=== PATIENT | male | born 1970 | race Caucasian/White ===

== ENCOUNTER → 2017-06-06 11:29 | Outpatient (CLI) | payer OTHER, SELFPAY ==
[2017-06-06 12:18] LABS: Absolute Lymphocyte Count 1.79 X10^3/ul (0.83-4.51); Absolute Neutrophil Count 3.2 X10^3/uL (2.0-7.7); Basophil# 0.03 X10^3/uL; Basophil% 0.5 % (0-1); Eosinophil# 0.12 X10^3/uL; Hematocrit 41.9 % (40-54); Hemoglobin 14.8 g/dl (13.0-16.5); Lymphocyte # 1.79 X10^3/ul (4.0); Lymphocyte % 30.5 % (19-41); Mean Corp Hgb Conc 35.3 g/gl (32-36); Mean Corpuscular Hgb 29.5 pg (27.0-32.0); Mean Corpuscular Volume 83.5 fL (80-94); Mean Platelet Vol. 10.5 fl (6.2-12.0); Monocyte# 0.73 X10^3/uL; Monocyte% 12.4 % (0-10); Neutrophil # 3.17 X10^3/uL (2.7-7.7); Neutrophil % 54.1 % (47-70); Platelet Count 206 K/mm3 (150-450); RBC Distribution Width CV 13.4 % (11.6-14.6); RBC Distribution Width SD 40.6 fl (35.1-43.9); Red Blood Count 5.02 M/mm3 (4.6-6.2); White Blood Count 5.9 K/mm3 (4.4-11.0)
[2017-06-06 12:21] LABS: POSITIVE COUNT NO; POSITIVE DIFFERENTIAL NO; POSITIVE MORPHOLOGY NO
[2017-06-06 12:46] LABS: ALB/GLOB Ratio 1.2 RATIO (0.9-2.4); AST(SGOT) 27 U/L (15-37); Alanine Aminotransfer ALT/SGPT 53 U/L (16-61); Albumin, Serum 3.9 g/dL (3.2-5.0); Alkaline Phosphatase 68 U/L (45-117); Anion Gap 8 (5-15); BUN 22 mg/dL (7-18); BUN/Creat Ratio 19.8 RATIO (10-20); Calcium,Total 8.5 mg/dL (8.5-10.1); Chloride 107 mmol/L (98-107); Cholesterol 158 mg/dL (200); Creatinine, Serum 1.11 mg/dL (0.70-1.30); EST Glomerular Filtration Rate 75 mL/min (>60); Est Glom Filt Rate - Afr Amer 91 mL/min (>60); Globulin 3.2 g/dL (2.2-4.2); Glucose 165 mg/dL (74-106); Hemoglobin A1c 7.5 % (4.2-6.3); High Density Lipoprotein 33 mg/dL; Potassium 4.3 mmol/L (3.5-5.1); Protein, Total 7.1 g/dL (6.4-8.2); Sodium Level 140 mmol/L (136-145); Triglycerides 165 mg/dL; Very Low Density Lipoprotein 33 mg/dL (5-40)
== END ==
DX: Z00.01 Encounter for general adult medical examination with abnormal findings (principal); E11.9 Type 2 diabetes mellitus without complications
CPT/HCPCS: 36415; 80053; 80061; 83036; 85025

== ENCOUNTER → 2018-06-30 09:48 | Outpatient (CLI) | payer OTHER, SELFPAY ==
[2018-06-30 11:18] LABS: Absolute Lymphocyte Count 1.63 X10^3/ul (0.83-4.51); Absolute Neutrophil Count 3.2 X10^3/uL (2.0-7.7); Basophil# 0.01 X10^3/uL; Basophil% 0.2 % (0-1); Eosinophil# 0.09 X10^3/uL; Eosinophils% 1.6 % (0-5); Hematocrit 42.3 % (40-54); Hemoglobin 14.9 g/dl (13.0-16.5); Lymphocyte # 1.63 X10^3/ul (4.0); Lymphocyte % 29.4 % (19-41); Mean Corp Hgb Conc 35.2 g/gl (32-36); Mean Corpuscular Hgb 28.2 pg (27.0-32.0); Monocyte# 0.61 X10^3/uL; Neutrophil # 3.16 X10^3/uL (2.7-7.7); Neutrophil % 57.1 % (47-70); Platelet Count 199 K/mm3 (150-450); RBC Distribution Width CV 13.5 % (11.6-14.6); RBC Distribution Width SD 38.7 fl (35.1-43.9); Red Blood Count 5.29 M/mm3 (4.6-6.2); White Blood Count 5.5 K/mm3 (4.4-11.0)
[2018-06-30 11:19] LABS: POSITIVE COUNT NO; POSITIVE DIFFERENTIAL NO; POSITIVE MORPHOLOGY NO
[2018-06-30 11:50] LABS: Hemoglobin A1c 10.2 % (4.2-6.3)
[2018-06-30 11:56] LABS: ALB/GLOB Ratio 1.2 RATIO (0.9-2.4); AST(SGOT) 20 U/L (15-37); Alanine Aminotransfer ALT/SGPT 37 U/L (16-61); Alkaline Phosphatase 81 U/L (45-117); Anion Gap 8 (5-15); BUN 16 mg/dL (7-18); BUN/Creat Ratio 13.4 RATIO (10-20); Calcium,Total 8.4 mg/dL (8.5-10.1); Chloride 103 mmol/L (98-107); Cholesterol 166 mg/dL (200); Creatinine, Serum 1.19 mg/dL (0.70-1.30); EST Glomerular Filtration Rate 69 mL/min (>60); Est Glom Filt Rate - Afr Amer 83 mL/min (>60); Globulin 3.2 g/dL (2.2-4.2); Glucose 277 mg/dL (74-106); High Density Lipoprotein 33 mg/dL; Potassium 4.2 mmol/L (3.5-5.1); Protein, Total 7.2 g/dL (6.4-8.2); Sodium Level 137 mmol/L (136-145); Thyroid Stim Hormone (TSH) 1.25 uIU/mL (0.358-3.74); Triglycerides 237 mg/dL; Very Low Density Lipoprotein 47 mg/dL (5-40)
== END ==
PROVIDERS: Family Provider Physician Assistant; PCP Physician Assistant; Referring Provider Physician Assistant; Visit Provider Physician Assistant
DX: Z00.01 Encounter for general adult medical examination with abnormal findings (principal); E11.9 Type 2 diabetes mellitus without complications; Z12.5 Encounter for screening for malignant neoplasm of prostate
CPT/HCPCS: 36415; 80053; 80061; 83036; 84153; 84443; 85025; G0103

== ENCOUNTER → 2019-07-06 | Outpatient (CLI) | payer OTHER, SELFPAY ==
[2019-07-06 12:01] LABS: Absolute Lymphocyte Count 2.29 X10^3/uL (0.83-4.51); Absolute Neutrophil Count 6.1 X10^3/uL (2.0-7.7); Basophil# 0.03 X10^3/uL; Basophil% 0.3 % (0-1); Eosinophil# 0.11 X10^3/uL; Eosinophils% 1.2 % (0-5); Hematocrit 47.3 % (40-54); Lymphocyte # 2.29 X10^3/ul (4.0); Lymphocyte % 24.5 % (19-41); Mean Corp Hgb Conc 33.8 g/dL (32-36); Mean Corpuscular Hgb 28.8 pg (27.0-32.0); Mean Corpuscular Volume 85.2 fL (80-94); Mean Platelet Vol. 10.3 fl (6.2-12.0); Monocyte# 0.74 X10^3/uL; Monocyte% 7.9 % (0-10); NRBC Flagged by Analyzer 0 % (0-5); Neutrophil # 6.13 X10^3/uL (2.7-7.7); Neutrophil % 65.7 % (47-70); Platelet Count 251 K/mm3 (150-450); RBC Distribution Width CV 12.7 % (11.6-14.6); RBC Distribution Width SD 39.4 fl (35.1-43.9); Red Blood Count 5.55 M/mm3 (4.6-6.2); White Blood Count 9.3 K/mm3 (4.4-11.0)
[2019-07-06 12:43] LABS: ALB/GLOB Ratio 1.2 RATIO (0.9-2.4); AST(SGOT) 16 U/L (15-37); Alanine Aminotransfer ALT/SGPT 33 U/L (16-61); Albumin, Serum 4.1 g/dL (3.2-5.0); Alkaline Phosphatase 77 U/L (45-117); Anion Gap 8 (5-15); BUN 16 mg/dL (7-18); Calcium,Total 9.3 mg/dL (8.5-10.1); Chloride 104 mmol/L (98-107); Cholesterol 195 mg/dL (200); Creatinine, Serum 1.14 mg/dL (0.70-1.30); EST Glomerular Filtration Rate 72 mL/min (>60); Est Glom Filt Rate - Afr Amer 87 mL/min (>60); Globulin 3.5 g/dL (2.2-4.2); Glucose 116 mg/dL (74-106); High Density Lipoprotein 41 mg/dL; PSA,Total - Annual Screen 0.41 ng/mL (0.00-4.00); Potassium 4.3 mmol/L (3.5-5.1); Protein, Total 7.6 g/dL (6.4-8.2); Sodium Level 136 mmol/L (136-145); Triglycerides 163 mg/dL; Very Low Density Lipoprotein 33 mg/dL (5-40)
[2019-07-09 18:41] LABS: Hemoglobin A1c 5.6 % (3.8-5.6)
== END | disposition home or self-care (01) ==
LOC: LAB 11:17
PROVIDERS: PCP Physician Assistant; Referring Provider Physician Assistant; Visit Provider Physician Assistant
DX: Z00.01 Encounter for general adult medical examination with abnormal findings (principal); E11.9 Type 2 diabetes mellitus without complications; Z12.5 Encounter for screening for malignant neoplasm of prostate
CPT/HCPCS: 36415; 80053; 80061; 83036; 84153; 85025; G0103

== ENCOUNTER → 2020-09-23 10:33 | Outpatient (CLI) | payer OTHER, SELFPAY ==
[2020-09-23 12:30] LABS: Absolute Lymphocyte Count 1.76 X10^3/uL (0.83-4.51); Absolute Neutrophil Count 3.7 X10^3/uL (2.0-7.7); Basophil# 0.04 X10^3/uL; Basophil% 0.6 % (0-1); Eosinophil# 0.14 X10^3/uL; Eosinophils% 2.2 % (0-5); Hematocrit 42.7 % (40-54); Hemoglobin 14.6 g/dL (13.0-16.5); Lymphocyte # 1.76 X10^3/ul (0.83-4.51); Lymphocyte % 27.8 % (19-41); Mean Corp Hgb Conc 34.2 g/dL (32-36); Mean Corpuscular Hgb 28.8 pg (27.0-32.0); Mean Corpuscular Volume 84.2 fL (80-94); Mean Platelet Vol. 10.8 fl (6.2-12.0); Monocyte# 0.71 X10^3/uL; Monocyte% 11.2 % (0-10); NRBC Flagged by Analyzer 0 % (0-5); Neutrophil # 3.65 X10^3/uL (2.7-7.7); Neutrophil % 57.6 % (47-70); Platelet Count 229 K/mm3 (150-450); RBC Distribution Width CV 12.6 % (11.6-14.6); RBC Distribution Width SD 38.7 fl (35.1-43.9); Red Blood Count 5.07 M/mm3 (4.6-6.2); White Blood Count 6.3 K/mm3 (4.4-11.0)
[2020-09-23 12:51] LABS: Hemoglobin A1c 7.4 % (3.8-5.6)
[2020-09-23 12:55] LABS: ALB/GLOB Ratio 1.3 RATIO (0.9-2.4); AST(SGOT) 24 U/L (15-37); Alanine Aminotransfer ALT/SGPT 48 U/L (16-61); Albumin, Serum 4.2 g/dL (3.2-5.0); Alkaline Phosphatase 63 U/L (45-117); Anion Gap 8 (5-15); BUN 24 mg/dL (7-18); Calcium,Total 8.7 mg/dL (8.5-10.1); Chloride 105 mmol/L (98-107); Cholesterol 187 mg/dL (200); Creatinine, Serum 1.09 mg/dL (0.70-1.30); EST Glomerular Filtration Rate 75 mL/min (>60); Est Glom Filt Rate - Afr Amer 91 mL/min (>60); Globulin 3.2 g/dL (2.2-4.2); Glucose 159 mg/dL (74-106); High Density Lipoprotein 37 mg/dL; Potassium 4.3 mmol/L (3.5-5.1); Protein, Total 7.4 g/dL (6.4-8.2); Sodium Level 138 mmol/L (136-145); Triglycerides 199 mg/dL; Very Low Density Lipoprotein 40 mg/dL (5-40)
== END ==
PROVIDERS: PCP Physician Assistant; Referring Provider Family Medicine; Visit Provider Family Medicine
DX: Z00.01 Encounter for general adult medical examination with abnormal findings (principal); E11.21 Type 2 diabetes mellitus with diabetic nephropathy; I10 Essential (primary) hypertension; Z12.5 Encounter for screening for malignant neoplasm of prostate
CPT/HCPCS: 36415; 80053; 80061; 83036; 84153; 85025; G0103

== ENCOUNTER → 2020-10-17 10:20 | Outpatient (CLI) | payer OTHER, SELFPAY ==
[2020-10-17 12:08] LABS: ALB/GLOB Ratio 1.4 RATIO (0.9-2.4); AST(SGOT) 19 U/L (15-37); Alanine Aminotransfer ALT/SGPT 45 U/L (16-61); Alkaline Phosphatase 62 U/L (45-117); Anion Gap 5 (5-15); BUN 21 mg/dL (7-18); Calcium,Total 8.8 mg/dL (8.5-10.1); Chloride 103 mmol/L (98-107); EST Glomerular Filtration Rate 83 mL/min (>60); Est Glom Filt Rate - Afr Amer 101 mL/min (>60); Globulin 2.9 g/dL (2.2-4.2); Glucose 171 mg/dL (74-106); Potassium 4.1 mmol/L (3.5-5.1); Protein, Total 6.9 g/dL (6.4-8.2); Sodium Level 136 mmol/L (136-145)
== END ==
PROVIDERS: PCP Physician Assistant; Referring Provider Physician Assistant; Visit Provider Physician Assistant
DX: I10 Essential (primary) hypertension (principal)
CPT/HCPCS: 36415; 80053

== ENCOUNTER → 2021-10-11 | Outpatient (CLI) | payer OTHER, SELFPAY ==
[2021-10-11 12:43] LABS: Basophil# 0.04 X10^3/uL; Basophil% 0.7 % (0-1); Eosinophil# 0.07 X10^3/uL; Eosinophils% 1.3 % (0-5); Hematocrit 44.1 % (40-54); Hemoglobin 15.4 g/dL (13.0-16.5); Lymphocyte % 31.4 % (19-41); Mean Corp Hgb Conc 34.9 g/dL (32-36); Mean Corpuscular Hgb 29.1 pg (27.0-32.0); Mean Corpuscular Volume 83.4 fL (80-94); Mean Platelet Vol. 11.2 fl (6.2-12.0); Monocyte# 0.54 X10^3/uL; NRBC Flagged by Analyzer 0 % (0-5); Neutrophil # 3.01 X10^3/uL (2.7-7.7); Neutrophil % 55.5 % (47-70); Platelet Count 210 K/mm3 (150-450); RBC Distribution Width CV 13.3 % (11.6-14.6); RBC Distribution Width SD 40.2 fl (35.1-43.9); Red Blood Count 5.29 M/mm3 (4.6-6.2); White Blood Count 5.4 K/mm3 (4.4-11.0)
[2021-10-11 13:07] LABS: Microalbumin,Random Urine 7.2 mg/L (NO RANGE EST.); Microalbumin:Creatinine Ratio 10.4 mg/g CRE (<30 mg/g CRE)
[2021-10-11 13:10] LABS: ALB/GLOB Ratio 1.2 RATIO (0.9-2.4); AST(SGOT) 17 U/L (15-37); Alanine Aminotransfer ALT/SGPT 27 U/L (16-61); Albumin, Serum 3.8 g/dL (3.2-5.0); Alkaline Phosphatase 100 U/L (45-117); Anion Gap 8 (5-15); BUN 22 mg/dL (7-18); BUN/Creat Ratio 18.2 RATIO (10-20); Chloride 100 mmol/L (98-107); Cholesterol 234 mg/dL (200); Creatinine, Serum 1.21 mg/dL (0.70-1.30); EST Glomerular Filtration Rate 67 mL/min (>60); Est Glom Filt Rate - Afr Amer 81 mL/min (>60); Globulin 3.3 g/dL (2.2-4.2); Glucose 304 mg/dL (74-106); High Density Lipoprotein 34 mg/dL; PSA,Total - Annual Screen 0.35 ng/mL (0.00-4.00); Potassium 4.1 mmol/L (3.5-5.1); Protein, Total 7.1 g/dL (6.4-8.2); Sodium Level 134 mmol/L (136-145); Triglycerides 457 mg/dL
[2021-10-11 13:12] LABS: Hemoglobin A1c 11.6 % (3.8-5.6)
== END | disposition home or self-care (01) ==
PROVIDERS: PCP Physician Assistant; Visit Provider Physician Assistant
DX: Z00.01 Encounter for general adult medical examination with abnormal findings (principal); E11.21 Type 2 diabetes mellitus with diabetic nephropathy; I10 Essential (primary) hypertension; Z12.5 Encounter for screening for malignant neoplasm of prostate
CPT/HCPCS: 36415; 80053; 80061; 82043; 82570; 83036; 84153; 85025; G0103

== ENCOUNTER → 2022-10-08 | Outpatient (CLI) | payer OTHER, SELFPAY ==
[2022-10-08 11:21] LABS: Absolute Lymphocyte Count 1.64 X10^3/uL (0.83-4.51); Absolute Neutrophil Count 2.9 X10^3/uL (2.0-7.7); Basophil# 0.05 X10^3/uL; Basophil% 0.9 % (0-1); Eosinophil# 0.09 X10^3/uL; Eosinophils% 1.7 % (0-5); Hemoglobin 15.8 g/dL (13.0-16.5); Lymphocyte # 1.64 X10^3/ul (0.83-4.51); Mean Corp Hgb Conc 32.9 g/dL (32-36); Mean Corpuscular Hgb 29.3 pg (27.0-32.0); Mean Corpuscular Volume 88.9 fL (80-94); Mean Platelet Vol. 10.5 fl (6.2-12.0); Monocyte# 0.59 X10^3/uL; Monocyte% 11.2 % (0-10); NRBC Flagged by Analyzer 0 % (0-5); Neutrophil # 2.88 X10^3/uL (2.7-7.7); Neutrophil % 54.4 % (47-70); Platelet Count 196 K/mm3 (150-450); RBC Distribution Width CV 13.2 % (11.6-14.6); RBC Distribution Width SD 42.5 fl (35.1-43.9); White Blood Count 5.3 K/mm3 (4.4-11.0)
[2022-10-08 11:53] LABS: ALB/GLOB Ratio 1.2 RATIO (0.9-2.4); AST(SGOT) 21 U/L (15-37); Alanine Aminotransfer ALT/SGPT 39 U/L (16-61); Albumin, Serum 4.1 g/dL (3.2-5.0); Alkaline Phosphatase 86 U/L (45-117); Anion Gap 2 (5-15); BUN 21 mg/dL (7-18); BUN/Creat Ratio 18.9 RATIO (10-20); Chloride 105 mmol/L (98-107); Cholesterol 144 mg/dL (200); Creatinine, Serum 1.11 mg/dL (0.70-1.30); EST Glomerular Filtration Rate 73 mL/min (>60); Est Glom Filt Rate - Afr Amer 89 mL/min (>60); Globulin 3.3 g/dL (2.2-4.2); Glucose 215 mg/dL (74-106); High Density Lipoprotein 32 mg/dL; Potassium 4.5 mmol/L (3.5-5.1); Protein, Total 7.4 g/dL (6.4-8.2); Sodium Level 136 mmol/L (136-145); Triglycerides 157 mg/dL; Very Low Density Lipoprotein 31 mg/dL (5-40)
[2022-10-08 11:56] LABS: Hemoglobin A1c 9.8 % (3.8-5.6)
== END | disposition home or self-care (01) ==
LOC: LAB 10:54
PROVIDERS: PCP Physician Assistant; Referring Provider Physician Assistant; Visit Provider Physician Assistant
DX: I10 Essential (primary) hypertension (principal); E11.21 Type 2 diabetes mellitus with diabetic nephropathy
CPT/HCPCS: 36415; 80053; 80061; 83036; 85025

== ENCOUNTER → 2023-08-08 | Outpatient (CLI) | payer OTHER, SELFPAY ==
[2023-08-08 11:11] LABS: Absolute Lymphocyte Count 1.89 X10^3/uL (0.83-4.51); Absolute Neutrophil Count 3.4 X10^3/uL (2.0-7.7); Basophil# 0.04 X10^3/uL; Basophil% 0.7 % (0-1); Eosinophil# 0.07 X10^3/uL; Eosinophils% 1.2 % (0-5); Hematocrit 45.4 % (40-54); Hemoglobin 15.4 g/dL (13.0-16.5); Lymphocyte # 1.89 X10^3/ul (0.83-4.51); Lymphocyte % 31.4 % (19-41); Mean Corp Hgb Conc 33.9 g/dL (32-36); Mean Corpuscular Hgb 28.8 pg (27.0-32.0); Mean Corpuscular Volume 84.9 fL (80-94); Mean Platelet Vol. 10.6 fl (6.2-12.0); NRBC Flagged by Analyzer 0 % (0-5); Neutrophil # 3.37 X10^3/uL (2.7-7.7); Platelet Count 198 K/mm3 (150-450); RBC Distribution Width CV 13.1 % (11.6-14.6); RBC Distribution Width SD 40.4 fl (35.1-43.9); Red Blood Count 5.35 M/mm3 (4.6-6.2)
[2023-08-08 11:48] LABS: Microalbumin,Random Urine < 5.0 mg/L (NO RANGE EST.)
[2023-08-08 11:50] LABS: ALB/GLOB Ratio 1.3 RATIO (0.9-2.4); AST(SGOT) 20 U/L (15-37); Alanine Aminotransfer ALT/SGPT 29 U/L (16-61); Alkaline Phosphatase 104 U/L (45-117); Anion Gap 4 (5-15); BUN 28 mg/dL (7-18); BUN/Creat Ratio 22.6 RATIO (10-20); Calcium,Total 8.6 mg/dL (8.5-10.1); Chloride 102 mmol/L (98-107); Cholesterol 166 mg/dL (200); Creatinine, Serum 1.24 mg/dL (0.70-1.30); EST Glomerular Filtration Rate 64 mL/min (>60); Est Glom Filt Rate - Afr Amer 78 mL/min (>60); Globulin 3.1 g/dL (2.2-4.2); Glucose 239 mg/dL (74-106); High Density Lipoprotein 32 mg/dL; PSA,Total - Annual Screen 0.44 ng/mL (0.00-4.00); Potassium 4.5 mmol/L (3.5-5.1); Protein, Total 7.1 g/dL (6.4-8.2); Sodium Level 133 mmol/L (136-145); Triglycerides 333 mg/dL; Very Low Density Lipoprotein 67 mg/dL (5-40)
[2023-08-08 12:54] LABS: Hemoglobin A1c 10.7 % (3.8-5.6)
== END | disposition home or self-care (01) ==
LOC: LAB 10:36
PROVIDERS: PCP Physician Assistant; Referring Provider Physician Assistant; Visit Provider Physician Assistant
DX: Z00.01 Encounter for general adult medical examination with abnormal findings (principal); E11.21 Type 2 diabetes mellitus with diabetic nephropathy; I10 Essential (primary) hypertension; Z12.5 Encounter for screening for malignant neoplasm of prostate
CPT/HCPCS: 36415; 80053; 80061; 82043; 82570; 83036; 84153; 85025; G0103

== ENCOUNTER → 2023-09-09 | Outpatient (CLI) | payer OTHER, SELFPAY ==
--- NOTE | 2023-09-09 07:35 | CT_ITS ---
STUDY: CT CHEST WITHOUT CONTRAST REASON FOR EXAM: Male, 53 years old. HTN imited chest over read only RADIATION DOSAGE (If Supplied By Facility): CTDIvol = ( 22.58 ) mGy, DLP = ( 451.62 ) mGycm TECHNIQUE: Transaxial imaging was performed without the administration of intravenous contrast material. Individualized dose optimization techniques were used for this CT. COMPARISON: No relevant priors. FINDINGS: CHEST The lungs are normal. There is no demonstrated pleural abnormality. There are calcifications of the coronary arteries. There are small lymph nodes within the mediastinum, which are normal in size and morphology most compatible with reactive lymph hyperplasia. Normal hilar regions. Normal unenhanced pulmonary arteries. There is mild atherosclerotic calcification of the aortic arch. Normal osseous structures. Small hiatal hernia. CT/Limited Chest CT Cardiac Only IMPRESSION: Coronary artery calcification. Electronically Signed: Philip Brown MD at 13:30 EDT ,
--- NOTE | 2023-09-09 08:09 | CA.SCORE ---
Calcium Scoring Date of Study:: 09/09/23 Coronary Calcium Scoring: High-resolution Computed Tomographic imaging of the chest was performed on [09/09/2023], with particular attention paid to the coronary arteries. Images from the examination were analyzed for the presence and extent of coronary artery calcification , using coronary calcium quantification software. The patient tolerated the procedure well and there were no complications. The results of the coronary calcification analysis are provided below. Findings Coronary Artery Left Main (LM): 22 Left Anterior Descending (LAD): 467 Left Circumflex (LCX): 0 Right Coronary Artery (RCA): 118 Total Agatston Score: 607 Percentile Ranking: Greater than 90th percentile Calcium Scoring Interpretation: Different methods to categorize the overall amount of coronary plaque. Overall amount CAC SIS Visual of coronary plaque P1 Mild -100 <2 1-2 vessels with mild amount of plaque P2 Moderate 101-300 3-4 1-2 vessels with moderate amount, 3 vessels with mild amount of plaque P3 Severe 301-999 5-7 3 vessels with moderate amount, 1 vessel with severe amount of plaque P4 Extensive >1000 >8 2-3 vessels with severe amount of plaque Calcium Score: Severe: 3 vessels w/moderate amount, 1 vessel w/severe amt of plaque Conclusion: 1 vessel with severe amount of plaque in the right coronary artery with a moderate amount of plaque present.
== END | disposition home or self-care (01) ==
PROVIDERS: PCP Physician Assistant; Referring Provider Physician Assistant; Visit Provider Physician Assistant
DX: E11.21 Type 2 diabetes mellitus with diabetic nephropathy (principal); I10 Essential (primary) hypertension
CPT/HCPCS: 75571; 76380

== ENCOUNTER → 2023-09-30 | Outpatient (CLI) | payer OTHER, SELFPAY ==
--- NOTE | 2023-09-30 10:33 | STRESSREP ---
Stress Test Report Exercise myocardial perfusion stress test. 53-year-old man with a history of chest pain Stress protocol: Resting EKG demonstrates normal sinus rhythm with a rate of 72 bpm resting blood pressure is 122/92 mmHg. The patient exercised according to the regular Memo protocol for a total duration of 6 minutes attaining a maximum heart rate of 144 bpm which was 87% of maximum predicted heart rate; the maximum workload was 7 metabolic equivalents. At rest there were no ST or T wave changes noted to suggest ischemia and at peak exercise upsloping ST changes only were noted which did not meet the criteria for ischemia. No clinical angina was noted the test was terminated due to the target heart rate being achieved/fatigue. The peak blood pressure was 148/82 mmHg. Rate-pressure product was 19,800. Myocardial perfusion protocol. 15 mCi of technetium 99m sestamibi was injected at rest. The patient exercised according to regular Memo protocol for total duration of 6 minutes and at peak exercise 45 mCi of technetium 99m sestamibi was injected stress images were obtained stress and rest images were reconstructed in comparing the short axis vertical long and horizontal long axis. Gated images were also obtained. Perfusion SPECT analysis: Review of the stress images demonstrate normal uptake of tracer noted in all areas of the myocardium. The resting images similarly demonstrate normal uptake of tracer noted in all areas of the myocardium. No areas of reversibility are noted to suggest ischemia no previous infarct was noted. Gated SPECT analysis: The gated ejection fraction is 75%. Conclusion: Normal exercise myocardial perfusion stress test at a moderate workload Preserved ejection fraction.
== END | disposition home or self-care (01) ==
LOC: CVS 06:02
PROVIDERS: PCP Physician Assistant; Referring Provider Physician Assistant; Visit Provider Physician Assistant
DX: E11.21 Type 2 diabetes mellitus with diabetic nephropathy (principal); I10 Essential (primary) hypertension; E78.2 Mixed hyperlipidemia
CPT/HCPCS: 78452; 93017; A9500; A4216

== ENCOUNTER 2023-11-14 10:53 | Outpatient (CLI) | payer OTHER, SELFPAY ==
[2023-08-02 06:46] VITALS: BP 163/110; PULSE 86; RESP 16; TEMP 36.1; O2SAT 98; BMI 32.3
[2023-08-02] MEDS: Lactated Ringers 1,000 ML 15 ML IV (06:53)
--- NOTE | 2023-08-02 07:14 | HP.PCM_ITS ---
HPI - General HPI Narrative DONTRELL CHAMPION, is a 53 M who presents [facility] Medical History (Updated 07/31/23 @ 09:40 by Una Aiken) Anxiety Diabetes High cholesterol GERD (gastroesophageal reflux disease) Sleep apnea Non-smoker Hyperlipidemia Type 2 diabetes mellitus HTN (hypertension) Home Medications ?Medication ?Instructions ?Recorded ?Last Taken ?Type atorvastatin 10 mg tablet 10 mg PO DAILY 06/06/23 08/01/23 History dapagliflozin propanediol 5 mg 5 mg PO DAILY 06/06/23 07/30/23 History tablet (Farxiga) lisinopril 2.5 mg tablet 2.5 mg PO DAILY 06/06/23 Unknown History omeprazole 20 mg capsule,delayed 20 mg PO DAILY 06/06/23 Unknown History release semaglutide 0.25 mg or 0.5 mg (2 0.25 mg subcut MO 06/06/23 07/29/23 History mg/1.5 mL) subcutaneous pen injector (Ozempic) sertraline 100 mg tablet 100 mg PO DAILY 06/06/23 08/01/23 History Allergy/AdvReac Type Severity Reaction Status Date / Time No Known Allergies Allergy Verified 08/02/23 06:34 Surgical History (Updated 07/31/23 @ 09:40 by Una Aiken) History of wisdom tooth extraction History of tonsillectomy History of hand surgery Social History (Updated 06/06/23 @ 10:24 by Felicia Sands) household members: spouse current occupational status: employed Smoking Status: Never smoker Past Medical/Surgical History Planned Operation Planned Operative Procedure(s): CSCOPE Previous Hospitalizations/Surgeries HX Hospitalizations: No Any Problems With Anesthesia: No You/Your Family Experience Fever (Hyperthermia) With Anes: No Cholinesterase deficiency: No Cardiovascular Hx Hypertension: Yes (CONTROLLED WITH MED) Respiratory Hx Sleep Apnea: Yes CPAP: Yes (NON COMPLIANT) BIPAP: No Hx Respiratory Tract Infection/Cold (presently): No Result (for STOP score): Positive Smoking Status: Never smoker Neurological Does patient have nerve stimulator: No Reproduction : No Miscellaneous Recent Exposure to Contagious Disease: No Allergies No Known Allergies Allergy (Verified 08/02/23 06:34) Discharge Is Pt Admitted From a [facility], or a Senior Care: No After D/C, Where Do you Plan to Go: Return Home Vital Signs Vital Signs Vital Signs: 08/02/23 06:46 08/02/23 06:46 Temperature 96.9 F L Temperature Source Temporal Pulse Rate 86 Respiratory Rate 16 Respiratory Pattern Normal Blood Pressure 163/110 H Blood Pressure Mean 127 Blood Pressure Source Monitor Blood Pressure Position Semi-Fowlers Blood Pressure Location Right Arm Pulse Ox 98 Oxygen Delivery Method Room Air Weight Weight: 231 lb 7.766 oz Body Mass Index (BMI) 32.3 Surgery Risks - Colonoscopy Risks Include but are not Limited To: Risks include but are not limited to: Bleeding, perforation requiring further surgery, inability to complete colonoscopy requiring barium enema.
[2023-08-02 07:31] LABS: Bedside Glucose 311 mg/dL (74-106)
--- NOTE | 2023-08-02 08:25 | PRE.ANES_ITS ---
ASA Classification* ASA Classification ASA Classification: 3 Assessment & Plan Anesthesia* Anesthesia Assessment Anesthesia Assessment: Discussed sedation and/or anesthesia options, risks, benefits, and alternatives with patient/parents/legal guardian/POA. Questions invited. The patient/parents/legal guardian/POA seems to understand and agrees to proceed with anesthesia plan. Reviewed the physical assessment, medical history, allergy history and patient home medications list prior to surgery/procedure/anesthetic and documented any changes. Performed airway and anesthesia risk assessments. 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 When Was Last Pacemaker Check QUESTION #4 FULL TEXT: You/Your Family Experience fever (hyperthermia) with Anesthesia Last Oral Intake Last Oral intake: Last Oral Intake NPO since 03:30 08/02/23 06:46 Meds taken in AM with sips of No 08/02/23 06:46 water? Meds patient instructed to take am of surgery PONV PONV - letter sorting machine operator: PONV - letter sorting machine operator Female No 07/31/23 09:34 HX of Motion Sickness Yes 07/31/23 09:34 HX of N/V After Surgery No 07/31/23 09:34 Non-Smoker Yes 07/31/23 09:34 Duration of Surgery greater No 07/31/23 09:34 than 60 minutes Number of Risk Factors 2 07/31/23 09:34 PONV Score Moderate Risk 07/31/23 09:34 Height & Weight Height & Weight: Anesthesia: Height & Weight Height 5 ft 11 in 08/02/23 06:46 Weight: 105 kg 08/02/23 06:46 Body Mass Index (BMI) 32.3 08/02/23 06:46 Respiratory Assessment Respiratory Assessment - letter sorting machine operator: Respiratory Tract Infection Hx - letter sorting machine operator Hx Respiratory Tract Infection No 08/02/23 07:16 STOP Sleep Apnea STOP Sleep Apnea - letter sorting machine operator: STOP Sleep Apnea - letter sorting machine operator Hx Hypertension Yes: CONTROLLED WITH MED 08/02/23 07:16 Hx Sleep Apnea Yes 08/02/23 07:16 CPAP Yes: NON COMPLIANT 08/02/23 07:16 BIPAP No 08/02/23 07:16 Do you snore loudly (louder than talking or can be heard Do you often feel tired/ fatigued/ sleepy during daytime? Has anyone observed you stop breathing during sleep? STOP Results Positive 08/02/23 07:16 QUESTION #5 FULL TEXT : Do you snore loudly (louder than talking or can be heard through closed doors)? 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 Specify any problems Hx of Preganancy in last 3 N/A 07/31/23 09:34 Months Nurse Filling Out Transfusion NBUCHER 07/31/23 09:34 & Questions: Date: 07/31/23 07/31/23 09:34 Time: 09:36 07/31/23 09:34 Patient unable to answer at this time (ie. confused, unrespo /Reproduction History /Reproductive History - letter sorting machine operator: /Reproductive Hx- letter sorting machine operator Hx Now No 08/02/23 07:16 Gestational Age (in weeks): EDC: Hx Hx Para Hx Section SAB No 07/31/23 09:34 Anesthesia Focused Assessment* Temperature: 96.9 F Pulse Rate: 86 Blood Pressure: 163/110 Respiratory Rate: 16 Pulse Ox: 98 Airway Assessment Mouth opens: >3 cm Mallampati Score: II Focused Labs Anesthesia Preop lab: CBC WBC 5.3 K/mm3 (4.4-11.0) 10/08/22 10:57 RBC 5.40 M/mm3 (4.6-6.2) 10/08/22 10:57 Hgb 15.8 g/dL (13.0-16.5) 10/08/22 10:57 Hct 48.0 % (40-54) 10/08/22 10:57 Plt Count 196 K/mm3 (150-450) 10/08/22 10:57 CHEMISTRY Potassium 4.5 mmol/L (3.5-5.1) 10/08/22 10:57 Sodium 136 mmol/L (136-145) 10/08/22 10:57 BUN 21 mg/dL (7-18) H 10/08/22 10:57 Creatinine 1.11 mg/dL (0.70-1.30) 10/08/22 10:57 Glucose 215 mg/dL (74-106) H 10/08/22 10:57 TSH 1.25 uIU/mL (0.358-3.74) 06/30/18 09:57 COAG Review of Systems (Anesthesia) ROS Narrative System reviewed and no additional complaints, except as documented. [facility] Medical History Anxiety Diabetes High cholesterol GERD (gastroesophageal reflux disease) Sleep apnea Non-smoker Hyperlipidemia Type 2 diabetes mellitus HTN (hypertension) Home Medications ?Medication ?Instructions ?Recorded ?Last Taken ?Type atorvastatin 10 mg tablet 10 mg PO DAILY 06/06/23 08/01/23 History dapagliflozin propanediol 5 mg 5 mg PO DAILY 06/06/23 07/30/23 History tablet (Farxiga) lisinopril 2.5 mg tablet 2.5 mg PO DAILY 06/06/23 Unknown History omeprazole 20 mg capsule,delayed 20 mg PO DAILY 06/06/23 Unknown History release semaglutide 0.25 mg or 0.5 mg (2 0.25 mg subcut MO 06/06/23 07/29/23 History mg/1.5 mL) subcutaneous pen injector (Ozempic) sertraline 100 mg tablet 100 mg PO DAILY 06/06/23 08/01/23 History Allergy/AdvReac Type Severity Reaction Status Date / Time No Known Allergies Allergy Verified 08/02/23 06:34 Surgical History History of wisdom tooth extraction History of tonsillectomy History of hand surgery Social History household members: spouse current occupational status: employed Smoking Status: Never smoker
[2023-08-02 08:26] VITALS: BP 163/110; PULSE 86; RESP 16; TEMP 36.1; O2SAT 98
== END 2023-11-14 23:59 | disposition home or self-care (01) ==
PROVIDERS: PCP Physician Assistant; Referring Provider Physician Assistant; Visit Provider Surgery
DX: Z12.11 Encounter for screening for malignant neoplasm of colon (principal); E11.9 Type 2 diabetes mellitus without complications; Z53.09 Procedure and treatment not carried out because of other contraindication; E78.00 Pure hypercholesterolemia, unspecified; K21.9 Gastro-esophageal reflux disease without esophagitis; I10 Essential (primary) hypertension; Z79.899 Other long term (current) drug therapy; F41.9 Anxiety disorder, unspecified; Z79.85 Long-term (current) use of injectable non-insulin antidiabetic drugs
CPT/HCPCS: 45378; 82962; J7120; J2405

== ENCOUNTER → 2023-12-05 | Outpatient (CLI) | payer OTHER, SELFPAY ==
--- NOTE | 2023-12-05 09:02 | ECHOCS_ITS ---
Reason For Study: CAD/ASHD Procedure This was a 2D Doppler, Color Flow transthoracic echocardiogram. The study was technically difficult. Contrast injection was performed. Exam performed in department. Left Ventricle Normal LV size. Left ventricular systolic function is normal. The left ventricular ejection fraction is 55 %. Stage 1 diastolic dysfunction. No regional wall motion abnormalities noted. Right Ventricle Normal RV size. Normal systolic function. Atria Normal left atrium. Normal right atrium. Mitral Valve Normal mitral valve. Tricuspid Valve Normal tricuspid valve. Aortic Valve Trisinus/trileaflet aortic valve. Pulmonic Valve Normal pulmonic valve. Great Vessels Normal aortic root. The pulmonary artery is normal size. Normal inferior vena cava. Pericardium/Pleural No pericardial effusion. Medication 22 gauge I.V. with prn adaptor inserted into left arm. Diluted definity 2ml given slow IV push to enhance endocardial definition. MMode/2D Measurements & Calculations LVIDd: 4.6 cm IVSd: 1.1 cm Ao root diam: 3.4 cm LVIDs: 2.8 cm LVPWd: 0.97 cm RVDd: 4.0 cm FS: 39.5 % LAV(MOD-bp): 62.4 ml LVAd ap4: 30.1 cm2 SV(MOD-sp4): 47.7 ml LAV(MOD-bp) Indexed: 27.4 ml/m2 LVLd ap4: 8.4 cm LAV(MOD-sp2): 64.2 ml EDV(MOD-sp4): 86.7 ml LAV(MOD-sp4): 54.6 ml EDV(sp4-el): 91.6 ml LVAs ap4: 18.7 cm2 LVLs ap4: 7.3 cm ESV(MOD-sp4): 39.0 ml ESV(sp4-el): 40.9 ml EF(MOD-sp4): 55.0 % EF(sp4-el): 55.4 % SV(sp4-el): 50.7 ml LA A4 area: 20.0 cm2 LA dimension(2D): 3.7 cm RA A4 area: 17.4 cm2 TAPSE: 1.9 cm Time Measurements MV dec time: 0.20 sec Doppler Measurements & Calculations MV E max alejandro: 75.4 cm/sec Lat Peak E' Alejandro: 11.9 cm/sec Med Peak E' Alejandro: 9.0 cm/sec MV A max alejandro: 87.6 cm/sec E/E' lat: 6.3 E/E' med: 8.4 MV E/A: 0.86 MV V2 max: 101.0 cm/sec MV P1/2t max alejandro: 88.8 cm/sec Ao V2 max: 148.0 cm/sec MV max P.1 mmHg MV P1/2t: 70.8 msec Ao max P.8 mmHg MV V2 mean: 56.9 cm/sec MV dec slope: 367.2 cm/sec2 Ao V2 mean: 111.5 cm/sec MV mean P.5 mmHg MVA(P1/2t): 3.1 cm2 Ao mean P.6 mmHg MV V2 VTI: 27.4 cm Ao V2 VTI: 33.2 cm LV V1 max: 146.9 cm/sec PA V2 max: 102.5 cm/sec LV V1 max P.6 mmHg PA V2 mean: 63.7 cm/sec ECHO/Echo Complete W/ Contrast Interpretation Summary Normal LV size. Left ventricular systolic function is normal. The left ventricular ejection fraction is 55 %. Stage 1 diastolic dysfunction. Contrast injection was performed. Ordering Physician: Kevin Fenton Referring Physician: Kevin Fenton Performed By: Giovanni Castro RCS
== END | disposition home or self-care (01) ==
LOC: CVS 09:00
PROVIDERS: PCP Physician Assistant; Referring Provider Internal Medicine Cardiovascular Disease; Visit Provider Internal Medicine Cardiovascular Disease
DX: I25.10 Atherosclerotic heart disease of native coronary artery without angina pectoris (principal); E78.5 Hyperlipidemia, unspecified
CPT/HCPCS: 93306; Q9957; A4216; C8929

== ENCOUNTER → 2024-08-31 | Outpatient (CLI) | payer OTHER, SELFPAY ==
[2024-08-31 11:49] LABS: Hematocrit 43.0 % (40-54); Hemoglobin 15.5 g/dL (13.0-16.5); Immature Granulocytes Count 0.040 X10^3/uL (0.0-0.0); Mean Corp Hgb Conc 36.0 g/dL (32-36); Mean Corpuscular Volume 83.3 fL (80-94); Mean Platelet Vol. 10.9 fl (6.2-12.0); NRBC Flagged by Analyzer 0 % (0-5); Platelet Count 185 K/mm3 (150-450); RBC Distribution Width CV 13.7 % (11.6-14.6); RBC Distribution Width SD 41.9 fl (35.1-43.9); Red Blood Count 5.16 M/mm3 (4.6-6.2); White Blood Count 5.9 K/mm3 (4.4-11.0)
[2024-08-31 11:51] LABS: Creatinine, Urine (random) 55.60 mg/dL (39.00-259.00); Microalbumin,Random Urine < 12.0 mg/L (NO RANGE EST.)
[2024-08-31 11:56] LABS: AST(SGOT) 21 U/L (<=37); Alanine Aminotransfer ALT/SGPT 26 U/L (<=46); Albumin, Serum 4.5 g/dL (3.5-5.0); Alkaline Phosphatase 82 U/L (40-129); Anion Gap 14 (5-15); BUN 31 mg/dL (4-19); BUN/Creat Ratio 26.6 RATIO (10-20); Calcium,Total 9.4 mg/dL (7.6-11.0); Carbon Dioxide 19.2 mmol/L (21.0-32.0); Chloride 101 mmol/L (98-108); Cholesterol 149 mg/dL (<=200); Globulin 2.5 g/dL (2.2-4.2); Glucose 251 mg/dL (70-99); Low Density Lipoprotein Calc. 79 mg/dL; Potassium 4.5 mmol/L (3.3-5.1); Triglycerides 147 mg/dL; Very Low Density Lipoprotein 29 mg/dL (5-40); cholesterol:hdl ratio screen 3.69
[2024-08-31 11:57] LABS: PSA,Total - Annual Screen 0.45 ng/mL (0.02-4.00)
== END | disposition home or self-care (01) ==
LOC: LAB 10:16
PROVIDERS: PCP Physician Assistant; Referring Provider Physician Assistant; Visit Provider Physician Assistant
DX: Z00.01 Encounter for general adult medical examination with abnormal findings (principal); E11.21 Type 2 diabetes mellitus with diabetic nephropathy; I10 Essential (primary) hypertension; Z12.5 Encounter for screening for malignant neoplasm of prostate
CPT/HCPCS: 36415; 80053; 80061; 82043; 82570; 83036; 84153; 85025; G0103